=== PATIENT | male | born 1950 | race Caucasian/White ===

== ENCOUNTER 2020-03-02 19:33 | Emergency (ER) | payer OTHER, MEDICARE, SELFPAY ==
[2020-03-02 19:37] VITALS: BP 174/67; PULSE 56; RESP 16; TEMP 36.3; O2SAT 98; BMI 25.8
--- NOTE | 2020-03-02 19:41 | W.ED.ABDPA2 ---
HPI - Abdominal Pain General: Chief Complaint: Abdominal Pain Stated Complaint: numbness/loss of feeling in right leg Time Seen by Provider: 03/02/20 19:36 Source: patient Mode of arrival: ambulatory Limitations: no limitations History of Present Illness: HPI narrative: 69-year-old male states he started having right lower quadrant pain roughly 2 hours ago. He started having some numbness loss of feeling in his right leg 2. He states he stepped on a walnut size and felt like his leg was asleep. He states that since getting out of the car and take his while out the numbness in his leg is subsiding but he still is having right lower quadrant pain that he states radiates to his groin. He denies any difficulty walking he has no problems voiding. Associated Symptoms: Denies chills, dysuria and fever(s) Review of Systems Const: Denies: fever(s), chills, body aches or change in appetite Eyes: Denies: blurry vision or eye discomfort ENMT: Denies: throat pain or dental pain Card: Denies: chest pain Resp: Denies: dyspnea GI: Reports: abdominal pain : Denies: dysuria Musc: Denies: neck pain or back pain Skin/Breast: Denies: rash Neuro: Denies: headache(s) Psych: Denies: depression Robby/Lymph: Denies: easy bruising All/Imm: Denies: urticaria Physical Exam Const: COMMON NORMALS: no acute distress, patient oriented x3 and healthy appearing HENMT: COMMON NORMALS: normocephalic and atraumatic HEAD & SCALP: normocephalic and atraumatic Eye: COMMON NORMALS: Equal, round and reactive pupils present and EOMs intact bilaterally PUPIL: Yes Equal, round and reactive pupils present Neck/C-Spine: COMMON NORMALS: full ROM and supple Chest: COMMONS NORMALS: normal inspection of the chest and normal palpation of entire chest wall Resp: COMMON NORMALS: normal respiratory effort, No retractions, No use of accessory muscles and clear to auscultation bilaterally AUSCULTATION: clear to auscultation bilaterally Cardio: COMMON NORMALS: regular rate, regular rhythm and No murmurs present (Cardio) RATE: regular rate RHYTHM: regular rhythm GI: COMMON NORMALS: Normal to inspection, nondistended, normoactive bowel sounds present, Soft to palpation and no masses PALPATION: Yes Soft to palpation and Yes Tenderness to palpation present (GI) Details: RLQ Extremity: COMMON NORMALS: normal to inspection and full ROM Neuro: COMMON NORMALS: patient oriented x3, moves all extremities and no focal motor deficits Psych: COMMON NORMALS: mental status grossly normal, Normal thought process present and cooperative THOUGHT PROCESS: Normal thought process present Skin: COMMON NORMALS: no rashes or lesions noted and no wounds GENERAL SKIN EXAM: no rashes or lesions noted Course Vital Signs: Vital signs: Vital Signs Temperature 97.4 F L 03/02/20 19:37 Pulse Rate 46 L 03/02/20 23:54 Respiratory Rate 18 03/02/20 23:54 Blood Pressure 135/49 03/02/20 23:54 Pulse Oximetry 97 03/02/20 23:54 MDM - Abdominal Pain MDM Narrative: Medical decision making narrative: 2299 patient's ultrasound here did show monophasic flow in his femoral arteries with unable to find dorsalis pedis or posterior tib flow on ultrasound. I spoke to vascular surgeon at [facility] I already started patient on heparin drip. This is likely acute on chronic. He requested a rapid Covid result before transfer but did accept pending the Covid test at this time. 2354 patient's Covid test came back negative. Will transfer by air. Patient still has heparin drip going is well-appearing here. Lab Data: Labs: Lab Results 03/02/20 03/02/20 03/02/20 Range/Units 19:52 20:02 20:02 WBC 11.3 H (4.0-10.0) 10^3/ uL RBC 4.88 (4.1-5.3) 10^6/u L Hgb 15.1 (11.7-16.6) g/dL Hct 43.8 (42.0-52.0) % MCV 89.8 (80-94) fL MCH 30.9 (28.0-34.0) pg MCHC 34.5 (30.0-36.0) g/dL RDW 12.5 (12.1-15.1) % Plt Count 193 (130-400) 10^3/c mm MPV 8.9 (7.4-10.4) fL Neut % (Auto) 65.6 % Lymph % (Auto) 25.0 % Mcdonald % (Auto) 6.0 % Eos % (Auto) 2.5 % Baso % (Auto) 0.5 % Neut # (Auto) 7.45 (1.8-7.7) 10^3/u L Lymph # (Auto) 2.8 (0.8-4.8) 10^3/u L Mcdonald # (Auto) 0.7 (0.2-0.9) 10^3/u L Eos # (Auto) 0.3 (0.0-0.8) 10^3/u L Baso # (Auto) 0.1 (0.0-0.1) 10^3/u L Nucleated RBC % (a uto) 0 % Nucleated RBCs # 0.0 /100WBC Sodium 136 (136-145) mmol/L Potassium 4.4 (3.5-5.1) mmol/L Chloride 100 (98-107) mmol/L Carbon Dioxide 24 (22-29) mmol/L Anion Gap 16.4 (5-19) BUN 23 (8-23) mg/dL Creatinine 1.7 H (0.7-1.2) mg/dL GFR Calculation 40.0 L (90-130) mL/min Glucose 106 (65-115) mg/dL Calculated Osmolal ity 286 (285-295) mOsm/k g Calcium 9.6 (8.5-10.5) mg/dL Total Bilirubin 0.6 (0.15-1.2) mg/dL AST 18 (0-40) U/L ALT 13 (0-41) U/L Alkaline Phosphata se 60 (40-130) IU/L Total Protein 7.2 (6.6-8.7) g/dL Albumin 4.5 (3.5-5.2) g/dL Globulin 2.7 (1.3-4.6) g/dL Lipase 37 (13-60) U/L Urine Color Yellow (Yellow) Urine Appearance Clear (CLEAR) Urine pH 6.5 (5-7) Ur Specific Gravit y 1.010 (1.005-1.030) Urine Protein Trace (Negative) Urine Glucose (UA) Norm (Normal) Urine Ketones Negative (Negative) Urine Blood Neg (Negative) Urine Nitrate Negative (Negative) Urine Bilirubin Neg (Negative) Urine Urobilinogen 8 H (Negative) mg/dL Ur Leukocyte Ellen ase Negative (Negative) Urine RBC 0-4 H (0-2) /hpf Urine WBC 0-4 H (0-5) /hpf Ur Squamous Epith Cells 0-4 H (0-5) /hpf Amorphous Sediment Not Reportable Urine Bacteria 1+ H (NONE) /hpf SARS-CoV-2 Ag (Rap id) (Negative) 03/02/20 Range/Units 23:20 WBC (4.0-10.0) 10^3/ uL RBC (4.1-5.3) 10^6/u L Hgb (11.7-16.6) g/dL Hct (42.0-52.0) % MCV (80-94) fL MCH (28.0-34.0) pg MCHC (30.0-36.0) g/dL RDW (12.1-15.1) % Plt Count (130-400) 10^3/c mm MPV (7.4-10.4) fL Neut % (Auto) % Lymph % (Auto) % Mcdonald % (Auto) % Eos % (Auto) % Baso % (Auto) % Neut # (Auto) (1.8-7.7) 10^3/u L Lymph # (Auto) (0.8-4.8) 10^3/u L Mcdonald # (Auto) (0.2-0.9) 10^3/u L Eos # (Auto) (0.0-0.8) 10^3/u L Baso # (Auto) (0.0-0.1) 10^3/u L Nucleated RBC % (a uto) % Nucleated RBCs # /100WBC Sodium (136-145) mmol/L Potassium (3.5-5.1) mmol/L Chloride (98-107) mmol/L Carbon Dioxide (22-29) mmol/L Anion Gap (5-19) BUN (8-23) mg/dL Creatinine (0.7-1.2) mg/dL GFR Calculation (90-130) mL/min Glucose (65-115) mg/dL Calculated Osmolal ity (285-295) mOsm/k g Calcium (8.5-10.5) mg/dL Total Bilirubin (0.15-1.2) mg/dL AST (0-40) U/L ALT (0-41) U/L Alkaline Phosphata se (40-130) IU/L Total Protein (6.6-8.7) g/dL Albumin (3.5-5.2) g/dL Globulin (1.3-4.6) g/dL Lipase (13-60) U/L Urine Color (Yellow) Urine Appearance (CLEAR) Urine pH (5-7) Ur Specific Gravit y (1.005-1.030) Urine Protein (Negative) Urine Glucose (UA) (Normal) Urine Ketones (Negative) Urine Blood (Negative) Urine Nitrate (Negative) Urine Bilirubin (Negative) Urine Urobilinogen (Negative) mg/dL Ur Leukocyte Ellen ase (Negative) Urine RBC (0-2) /hpf Urine WBC (0-5) /hpf Ur Squamous Epith Cells (0-5) /hpf Amorphous Sediment Urine Bacteria (NONE) /hpf SARS-CoV-2 Ag (Rap id) Negative (Negative) Imaging Data ^: CT Abd/Pel: Attestation: I personally reviewed and interpreted this imaging study as follows: Radiologist's impression: [address] [address] [address] Scan Report Signed Patient: Stephen Galvan Unit #: [id number] : 1950 Age/Sex: 69 / M ADM Date: 03/02/20 Loc: ER Room/Bed: Attending Dr: Ordering Provider/Ordering MD: Carline Whittington MD Date of Service: 03/02/20 Procedure(s): CT abdomen pelvis w con* [id number] Accession Number(s): [id number] Report Number: [id number] PROCEDURE INFORMATION: Exam: CT Abdomen And Pelvis With Contrast Exam date and time: 03/02/2020 9:29 PM Age: 69 years old Clinical indication: Abdominal pain; Localized; Right lower quadrant (rlq); Patient HX: C/O rlq/groin pain; Additional info: Abd pain TECHNIQUE: Imaging protocol: Computed tomography of the abdomen and pelvis with intravenous contrast. Radiation optimization: All CT scans at this facility use at least one of these dose optimization techniques: automated exposure control; mA and/or kV adjustment per patient size (includes targeted exams where dose is matched to clinical indication); or iterative reconstruction. Contrast material: OMNI 300; Contrast volume: 95 ml; Contrast route: INTRAVENOUS (IV); COMPARISON: No relevant prior studies available. RADIATION DOSE METRICS: Total DLP (mGy-cm): 588.95 FINDINGS: Liver: There is a cystic lesion in the left hepatic lobe with benign features measuring 13 mm. Follow-up is not necessary. Gallbladder and bile ducts: Normal. No calcified stones. No ductal dilation. Pancreas: Normal. No ductal dilation. Spleen: Normal. No splenomegaly. Adrenal glands: Normal. No mass. Kidneys and ureters: Right renal scarring. There are cysts with benign features in the bilateral kidneys the larger of which measures 3.6 cm in the left kidney. Follow-up is not necessary. Stomach and bowel: There is diverticulosis of the colon without evidence of diverticulitis. Appendix: No evidence of appendicitis. Intraperitoneal space: Unremarkable. No free air. No significant fluid collection. Vasculature: Multi-vessel atherosclerotic disease. No definite flow is seen in the distal 1.2 cm of the lower abdominal aorta and proximal aspects of the bilateral common iliac arteries. There is some flow seen within the distal aspects of the common iliac arteries and flow in the bilateral external iliac arteries. Lymph nodes: Unremarkable. No enlarged lymph nodes. Urinary bladder: Unremarkable as visualized. Reproductive: There are calcifications in the prostate gland. 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 Soft tissues: Small fat containing left inguinal hernia. CT/CT abdomen pelvis w con* [id number] IMPRESSION: There is multivessel atherosclerotic disease with no definite flow seen in the distal abdominal aorta and proximal aspects of the bilateral common iliac arteries consistent with Leriche syndrome. Please correlate clinically. Radiation Dose CTDIVOL = (mGy): Critical Care Time Critical Care Time: Critical Care Time: Yes Total Critical Care Time: 36 Attestation: This case had a high probability of a clinically significant, sudden, or life threatening deterioration of this patient's condition which required my full and direct attention, intervention and personal management. Discharge Plan Discharge Patient Disposition: Xfer Other Clinical Impression: Peripheral vascular disease, Ischemic leg Condition: Stable Coding Level of Care Code ED Sales Support Manager for g Fwd Exam Comprehensive
[2020-03-02 20:08] VITALS: BP 165/62; O2SAT 97
[2020-03-02 20:08] LABS: Basophils # 0.1 10^3/uL (0.0-0.1); Basophils % 0.5 %; Eosinophils # 0.3 10^3/uL (0.0-0.8); Eosinophils % 2.5 %; Hematocrit 43.8 % (42.0-52.0); Hemoglobin 15.1 g/dL (11.7-16.6); Lymphocytes # 2.8 10^3/uL (0.8-4.8); Mean Corpuscular HGB Conc 34.5 g/dL (30.0-36.0); Mean Corpuscular Hemoglobin 30.9 pg (28.0-34.0); Mean Corpuscular Volume 89.8 fL (80-94); Mean Platelet Volume 8.9 fL (7.4-10.4); Monocytes # 0.7 10^3/uL (0.2-0.9); Neutrophils # 7.45 10^3/uL (1.8-7.7); Neutrophils % 65.6 %; Nucleated Red Blood Cells % 0 %; Platelet Count 193 10^3/cmm (130-400); Red Blood Count 4.88 10^6/uL (4.1-5.3); Red Cell Distribution Width 12.5 % (12.1-15.1); White Blood Count 11.3 10^3/uL (4.0-10.0)
[2020-03-02 20:25] LABS: Alanine Aminotransferase 13 U/L (0-41); Albumin Level 4.5 g/dL (3.5-5.2); Alkaline Phosphatase 60 IU/L (40-130); Blood Urea Nitrogen 23 mg/dL (8-23); Calcium 9.6 mg/dL (8.5-10.5); Carbon Dioxide 24 mmol/L (22-29); Chloride 100 mmol/L (98-107); Globulin 2.7 g/dL (1.3-4.6); Glucose 106 mg/dL (65-115); Lipase 37 U/L (13-60); Osmolality Calculated 286 mOsm/kg (285-295); Sodium 136 mmol/L (136-145); Total Bilirubin 0.6 mg/dL (0.15-1.2); Total Protein 7.2 g/dL (6.6-8.7)
[2020-03-02 20:28] LABS: Anion Gap 16.4 (5-19); Aspartate Amino Transferase 18 U/L (0-40); Potassium 4.4 mmol/L (3.5-5.1)
[2020-03-02] MEDS: sodium chloride 0.9% 1,000 ML 999 ML IV (20:43)
[2020-03-02 20:45] VITALS: BP 149/59; PULSE 51; RESP 17; O2SAT 97
[2020-03-02 20:46] LABS: Add Urine Microscopic? YES; Bilirubin Urine Neg (Negative); Blood Urine Neg (Negative); Glucose Urine UA Norm (Normal); Ketones Urine Negative (Negative); Leukocyte Esterase Urine Negative (Negative); Nitrate Urine Negative (Negative); Protein Urine Trace (Negative); Urine Appearance Clear (CLEAR); Urine Color Yellow (Yellow); Urobilinogen Urine 8 mg/dL (Negative); pH Urine 6.5 (5-7)
[2020-03-02 20:47] LABS: Add Urine Culture? No; Bacteria Urine 1+ /hpf; RBC Urine 0-4 /hpf (0-2); Squamous Epithelial Cell Urine 0-4 /hpf (0-5); WBC Urine 0-4 /hpf (0-5)
[2020-03-02] MEDS: iodixanol 320 mg/mL 100mL Btl IV (21:36)
[2020-03-02 21:58] VITALS: BP 148/62; PULSE 62; RESP 18; O2SAT 96
--- NOTE | 2020-03-02 22:35 | USR_ITS ---
PROCEDURE INFORMATION: Exam: US Duplex Lower Extremity Arteries Or Arterial Bypass Grafts Exam date and time: 03/02/2020 10:45 PM Age: 69 years old Clinical indication: Other: RT leg numbness; Prior surgery; Surgery type: Vein harvest RT leg; Additional info: Ischemia TECHNIQUE: Imaging protocol: Real-time ultrasound scan of the arteries of the bilateral lower extremities with 2-D diaz scale, color Doppler flow and spectral waveform analysis. Images documented and saved. COMPARISON: No relevant prior studies available. FINDINGS: Right common femoral artery: Peak systolic velocities 66.5 centimeters/seconds it. Monophasic waveforms. Right superficial femoral artery: Lyle systolic velocities are between 15 and 38.7 cm/s. Monophasic waveforms. Right popliteal artery: Peak systolic velocity is 14.5 cm/s. Monophasic waveforms. Right calf/foot arteries: Unable to obtain waveforms. Left common femoral artery: Peak systolic velocity is 24.7 cm/s. Monophasic waveforms. Left superficial femoral artery: Peak systolic velocity is between 18.3 and 33.9 cm/s. Monophasic waveforms. Left popliteal artery: Peak systolic velocity is 15.4 cm/s. Monophasic waveforms. Left calf/foot arteries: Peak systolic velocity of the posterior tibialis artery distally is 11.1 cm/s. Monophasic waveforms. Left calf/foot arteries: No occlusion or significant stenosis in the visualized arteries. Normal waveforms. Dorsalis pedis artery is [place]. US/[place] [id number] IMPRESSION: Monophasic waveforms are nonspecific and may be related to small vessel disease.
[2020-03-02] MEDS: heparin 5,000 unit/mL INJ 1 mL 4000 UNIT IVP (23:01)
[2020-03-02] MEDS: heparin drip 25,000 UNIT/500 ML PREMIX 19.6 UNIT IV (23:02)
[2020-03-02 23:54] VITALS: BP 135/49; PULSE 46; RESP 18; O2SAT 97
[2020-03-02 23:56] LABS: SARS Covid-2 Antigen Negative (Negative)
--- NOTE | 2020-03-03 00:22 | PC.NURSE ---
Consent to transfer signed by patient
--- NOTE | 2020-03-03 00:37 | PC.NURSE ---
Report called to Tien Dailey RN at [facility]
--- NOTE | 2020-03-03 00:53 | PC.NURSE ---
Bedside report given to [employer] crew at 0050
[2020-03-03 01:04] VITALS: BP 145/51; PULSE 48; O2SAT 96
== END 2020-03-03 01:04 | disposition other institution (70) ==
PROVIDERS: Emergency Provider Emergency Medicine
DX: I73.9 Peripheral vascular disease, unspecified (principal); I99.8 Other disorder of circulatory system
CPT/HCPCS: 12345; 74177; 80053; 81001; 83690; 85025; 87426; 93925; 96365; 96366; 96375; 99283; 99285; J1644; J7030; Q9967

== ENCOUNTER → 2020-04-30 13:53 | Outpatient (BNVA) | payer OTHER, SELFPAY | PROVIDERS: Referring Provider Family Medicine; Visit Provider Specialist | DX: G25.81 Restless legs syndrome (principal); Z87.891 Personal history of nicotine dependence | CPT/HCPCS: 99204 ==

== ENCOUNTER 2020-05-01 13:00 | Outpatient (CLI) | payer OTHER, MEDICARE, SELFPAY ==
[2020-05-01 14:58] LABS: Ferritin 106 ng/mL (30-400); Iron 78 ug/dL (59-158); Percent Saturation 33.1 % (20-50); Total Iron Binding Capacity 235 mcg/dl; Unsaturated Iron Binding 157 ug/dL (112-347)
[2020-05-01 15:14] LABS: Vitamin B12 308 pg/mL (232-1245)
== END 2020-05-01 13:01 | disposition home or self-care (01) ==
LOC: LAB 13:08
PROVIDERS: PCP Family Medicine; Visit Provider Specialist
DX: D64.9 Anemia, unspecified (principal); R20.8 Other disturbances of skin sensation
CPT/HCPCS: 82607; 82728; 83540; 83550

== ENCOUNTER → 2020-09-11 13:47 | Outpatient (BNVA) | payer MEDICARE, SELFPAY | PROVIDERS: PCP Family Medicine; Visit Provider Specialist | DX: G25.81 Restless legs syndrome (principal); Z87.891 Personal history of nicotine dependence | CPT/HCPCS: 99212 ==

== ENCOUNTER 2021-03-04 10:56 | Emergency (ER) | payer OTHER, MEDICARE, SELFPAY ==
[2021-03-04 11:12] VITALS: BP 141/73; PULSE 86; RESP 18; TEMP 36.7; O2SAT 100
--- NOTE | 2021-03-04 12:18 | W.ED.EXTPRO ---
HPI - Extremity Problem General: Chief complaint: Extremity Injury, Lower Stated complaint: severe pain in right leg Time Seen by Provider: 03/04/21 12:03 Source: patient Mode of arrival: ambulatory Limitations: no limitations History of Present Illness: HPI Narrative: Patient is a 70-year-old male who presents to ED today with what he believes is right-sided sciatica pain. He is having pain near his right buttock with radiation down into his entire right lower extremity. Patient states he has had pain for several weeks. Patient does have a history of peripheral vascular disease and was seen here last year due to an ischemic extremity. He states he has iliac/femoral artery stents and several stents to leg. He states he was just seen by his vascular surgeon at [facility] in [place] yesterday and had arterial ultrasounds performed which were reportedly normal (ammunition specialist currently trying to get these reports). He has not had any injury or trauma to his leg. He has not noticed any redness, swelling, pallor, coldness. He does report some altered sensation to the anterior below the knee portion of his leg. MD Complaint: extremity pain Onset (ago): week(s) Pain Consistency: constant Location: right and lower extremity Relieving factors: nothing Exacerbating factors: weight bearing and walking Associated symptoms: Reports no associated symptoms; Deny chest pain, fever(s) or rash Review of Systems Const: Denies: fever(s), chills, body aches, fatigue or malaise Card: Denies: chest pain, swelling of feet/ankles or dyspnea on exertion Resp: Denies: dyspnea Musc: Reports: extremity pain; Denies: neck pain, back pain, extremity swelling, joint pain, joint swelling, joint redness, joint warmth, joint stiffness, limited range of motion, muscle weakness or decrease in muscle mass Skin/Breast: Denies: rash, skin pain, new lesions or changes in skin color Neuro: Reports: sensory changes (R LE) and difficulty walking (secondary to pain) [facility] ED PFSH: Family History Brother CAD (coronary artery disease) Grandfather CAD (coronary artery disease) Social History (Updated 09/11/20 @ 14:27 by Daniella Chandler LPN) Smoking and tobacco status: former smoker Quit status (tobacco): has quit using tobacco Year quit tobacco: 2019 Second hand smoke exposure: No Smoking risk assessment/counseling performed?: Yes Alcohol intake: never History of recent travel: No Physical Exam Const: COMMON NORMALS: no acute distress, average body habitus, no limitations, healthy appearing, alert and well nourished GENERAL APPEARANCE: cooperative Resp: COMMON NORMALS: normal respiratory effort and clear to auscultation bilaterally AUSCULTATION: clear to auscultation bilaterally Cardio: COMMON NORMALS: regular rate and regular rhythm RATE: regular rate RHYTHM: regular rhythm Back/Pelvis: COMMON NORMALS: thoracic and lumbar spine normal to inspection, no thoracic nor lumbar tenderness and thoraco-lumbar ROM normal THORACIC SPINE/UPPER BACK: Yes normal to inspection, Yes thoracic ROM normal, No thoracic spinal tenderness, No paraspinal muscle tenderness and No paraspinal muscle spasm LUMBAR SPINE/LOWER BACK: Yes normal to inspection, Yes lumbar ROM normal, No lumbar spinal tenderness, No paraspinal muscle tenderness and No paraspinal muscle spasm PELVIS: Yes buttock abnormal and Yes sciatic notch tenderness on the right Extremity: COMMON NORMALS: normal to inspection, full ROM, capillary refill normal, no joint enlargement, no clubbing, cyanosis or edema, no calf tenderness and no pedal edema GENERAL: Yes normal exam except as noted Neuro: COMMON NORMALS: moves all extremities, no focal motor deficits and no sensory deficits noted SENSORIUM/ORIENTATION: Yes alert Skin: COMMON NORMALS: no rashes or lesions noted GENERAL SKIN EXAM: no rashes or lesions noted TRAUMA: no lacerations or abrasions Course Vital Signs: Vital signs: Vital Signs Temperature 98.0 F 03/04/21 11:12 Pulse Rate 86 03/04/21 11:12 Respiratory Rate 18 03/04/21 12:32 Blood Pressure 141/73 03/04/21 11:12 Pulse Oximetry 98 03/04/21 12:32 MDM - Extremity (Nontraumatic) MDM Narrative: Medical decision making narrative: Patient with palpable pulses to Cem LUIS from [facility] unattainable as we tried for over two hours to get these reports. Fortunately patient did have access to his online records and I did review his visit with the vascular surgery office. According to his documentation his iliac stent was patent. He had occlusion of his SFA stent but there was reconstitution distally. His popliteal artery was patent. PT/DP pulses present. At their visit yesterday they did not recommend anything further from a vascular surgery standpoint. Patient will be treated for R sided sciatica and [facility] that could include MRI of back, PT, pain management referral, etc. Patient is stable for DC from and ED standpoint as he has no evidence of acute limb ischemia, DVT, cord compression, or other emergent condition. Imaging Data^: XR R hip/pelvis: Radiologist's impression: [address] [address]NTtd ReportSigned Patient: Stephen Galvan LUnit #: [id number]: [id number]#:[id number]/Sex: 70 / MADM Date: 03/04/21Loc: ERRoom/Bed:Attending Dr: Ordering Provider/Ordering MD: Maegan Burgess Date of Service: 03/04/21 Procedure(s): XR hip RT 2-3V wo/w pel* [id number] Accession Number(s): [id number] Report Number: [id number] PROCEDURE INFORMATION: Exam: XR Right Hip Exam date and time: 03/04/2021 12:17 PM Age: 70 years old Clinical indication: Hip pain; Right hip; Patient HX: No injury pain to RT hip x 6 weeks; Additional info: Pain/one view pelvis too please TECHNIQUE: Imaging protocol: XR Right hip. Views: 1 view hip with pelvis when performed. COMPARISON: CT abdomen pelvis w con* [id number] 03/02/2020 9:27 PM FINDINGS: Bones/joints: No fracture, dislocation or other acute bony abnormalities are seen. There are no significant degenerative changes in the hips. Soft tissues: See Vasculature finding. Vasculature: Bilateral iliac artery and right femoral artery stents are present. There are clips in both inguinal regions. XR/XR hip RT 2-3V wo/w pel* [id number] IMPRESSION: No significant abnormalities are seen in the right hip. Radiation Dose CTDIVOL = (mGy): DLP = (mGy-cm) Dictated By:Guicho Garcia By:Guicho Garcia Date/Time:03/04/21 1326DD/ 1217 Discharge Plan Discharge Patient Disposition: Home Clinical Impression: Right sided sciatica Condition: Stable Prescriptions: New cyclobenzaprine 10 mg tablet 10 mg PO TID Qty: 14 RF: 0 tramadol 50 mg tablet 50 mg PO Q6H PRN (Reason: pain) Qty: 14 RF: 0 Medrol (Henrry) 4 mg tablets,dose pack See Rx Instructions .ROUTE .COMPLEX Qty: 21 RF: 0 No Action losartan 100 mg tablet 100 mg PO DAILY RF: 0 atenolol-chlorthalidone 50-25 mg tablet 1 tab PO DAILY RF: 0 pantoprazole 40 mg tablet,delayed release (DR/EC) 40 mg PO DAILY RF: 0 clopidogrel 75 mg tablet 75 mg PO DAILY RF: 0 ropinirole 3 mg tablet 3 mg PO DAILY RF: 0 diltiazem HCl 120 mg capsule,extended release 12 hr 120 mg PO DAILY RF: 0 atorvastatin 40 mg tablet 40 mg PO DAILY RF: 0 citalopram 40 mg tablet 20 mg PO DAILY RF: 0 amlodipine 2.5 mg tablet 2.5 mg PO DAILY RF: 0 cholecalciferol (vitamin D3) 25 mcg (1,000 unit) capsule 25 mcg PO DAILY RF: 0 metformin 500 mg tablet See Rx Instructions PO DAILY RF: 0 aspirin [Roz Chewable Aspirin] 81 mg tablet,chewable 81 mg PO DAILY RF: 0 omega-3 fatty acids [Fish Oil Concentrate] 1,000 mg capsule 1,000 mg PO BID RF: 0 pramipexole 0.125 mg tablet See Rx Instructions .ROUTE .COMPLEX Qty: 150 RF: 4 Discharge Orders: Discharge ED (Routine); Ordered 03/04/21 Ordered By: Maegan Burgess Referrals: Yue Tomas MD [Primary Care Provider] - Patient Instructions: Sciatica (ED) Activity Restrictions/Additional Instructions: As we discussed please [facility] with the [facility] for further [facility] of your sciatic nerve pain. We will try a trial of steroids, muscle relaxers, pain medications to see if this gives you any relief. Coding Level of Care Code ED Insurance Account Executive for Ahsan Fwgary Exam Detailed
[2021-03-04 12:32] VITALS: RESP 18; O2SAT 98
[2021-03-04] MEDS: morphine 4 mg/mL SDV 1 mL IM (12:32)
[2021-03-04] MEDS: orphenadrine 30 mg/mL Inj 2 mL 60 MG IM (12:33)
[2021-03-04] MEDS: dexamethasone 10 mg/mL INJ 8 MG IM (12:33)
[2021-03-04 15:10] VITALS: BP 117/65; PULSE 76; RESP 16; TEMP 36.5; O2SAT 99
== END 2021-03-04 15:12 | disposition home or self-care (01) ==
PROVIDERS: Emergency Provider Physician Assistant; PCP Family Medicine
DX: M54.31 Sciatica, right side (principal); Z79.84 Long term (current) use of oral hypoglycemic drugs; Z79.02 Long term (current) use of antithrombotics/antiplatelets; Z79.82 Long term (current) use of aspirin; Z87.891 Personal history of nicotine dependence
CPT/HCPCS: 73502; 96372; 99283; J1100; J2270; J2360

== ENCOUNTER 2021-06-10 14:44 | Outpatient (CLI) | payer OTHER, MEDICARE, SELFPAY ==
--- NOTE | 2021-06-10 14:51 | MR_ITS ---
WS: [id number] MRI LUMBAR SPINE NONCONTRAST TECHNIQUE: Sagittal T1, T2 and STIR imaging. Axial T1 and T2 imaging. CLINICAL INFORMATION: R SCIATICA COMPARISON: None. FINDINGS: Normal lumbar alignment. No acute compression. No high-grade central canal stenosis. Mild disc bulgin g L4-L5 and L5-S1. Chronic spondylolysis L5-S1. No significant anterolisthesis. L1-L2: Normal. L2-L3: Mild annular bulging. Mild facet arthropathy. Spinal canal and foramen are patent. L3-L4: Mild annular bulging. Mild facet arthropathy. Spinal canal and foramen are patent. L4-L5: Mild annular bulging with slight impingement on traversing LEFT greater than RIGHT L5 nerve ro ots. Mild facet arthropathy. Mild RIGHT greater than LEFT foraminal narrowing. L5-S1: Mild disc bulging with slight effacement of ventral thecal sac. Mild facet arthropathy. Mild R IGHT and no significant LEFT foraminal narrowing. Mild facet arthropathy. Chronic spondylolysis at th is level. Small amount of edema in the RIGHT dorsal paravertebral soft tissues in the lower lumbar spine likely inflammatory. No drainable fluid collections. Bilateral renal cortical atrophy. LEFT renal cyst gordo uring 2.7 x 2.7 CM. Visualized pelvic bony structures: Normal. Paravertebral soft tissues: Normal. MR/MR lumbar spine wo con* [id number] IMPRESSION: 1. Mild lumbar curve. No acute compression. Chronic spondylolysis L5-S1. No si gnificant anterolisthesis. 2. Mild annular bulging L4-L5 with slight impingement on the traversing LEFT g reater than RIGHT L5 nerve roots. Correlation with L5 nerve root symptoms. 3. Bilateral L4-L5 foraminal narrowing with slight impingement on the exiting RIGHT greater than LEFT L4 nerve roots. 4. Mild RIGHT L5-S1 bony foraminal narrowing. 5. Moderate facet arthropathy L4-L5 and L5-S1. 6. LEFT renal cyst measuring 2.7 x 2.7 cm.
== END 2021-06-10 14:45 | disposition home or self-care (01) ==
LOC: RAD 14:46
PROVIDERS: PCP Family Medicine; Visit Provider Family Medicine
DX: M54.31 Sciatica, right side (principal); M47.817 Spondylosis without myelopathy or radiculopathy, lumbosacral region; M51.26 Other intervertebral disc displacement, lumbar region; M47.816 Spondylosis without myelopathy or radiculopathy, lumbar region; N28.1 Cyst of kidney, acquired
CPT/HCPCS: 72148

== ENCOUNTER → 2021-09-10 15:05 | Outpatient (BNVA) | payer OTHER, SELFPAY | PROVIDERS: PCP Family Medicine; Visit Provider Specialist | DX: G62.9 Polyneuropathy, unspecified (principal); G25.81 Restless legs syndrome; I73.9 Peripheral vascular disease, unspecified | CPT/HCPCS: 99213; 99214 ==

== ENCOUNTER → 2022-09-18 08:56 | Outpatient (BNVA) | payer OTHER, SELFPAY | PROVIDERS: PCP Family Medicine; Visit Provider Specialist | DX: G54.1 Lumbosacral plexus disorders (principal); G25.81 Restless legs syndrome; I73.9 Peripheral vascular disease, unspecified; N18.9 Chronic kidney disease, unspecified | CPT/HCPCS: 99213 ==

== ENCOUNTER 2022-10-22 20:00 | Outpatient (CLI) | payer OTHER, SELFPAY | END 2022-10-22 20:01 | disposition home or self-care (01) | LOC: SLEEP 10-23 05:40 | PROVIDERS: PCP Family Medicine; Visit Provider Family Medicine | DX: G47.30 Sleep apnea, unspecified (principal) | CPT/HCPCS: 95811 ==

== ENCOUNTER 2023-01-19 20:00 | Outpatient (CLI) | payer OTHER, SELFPAY | END 2023-01-19 20:01 | disposition home or self-care (01) | LOC: SLEEP 01-20 05:26 | PROVIDERS: PCP Family Medicine; Visit Provider Family Medicine | DX: G47.33 Obstructive sleep apnea (adult) (pediatric) (principal) | CPT/HCPCS: 95811 ==

== ENCOUNTER → 2023-01-21 09:54 | Outpatient (BNVA) | payer OTHER, SELFPAY | PROVIDERS: PCP Family Medicine; Visit Provider Internal Medicine Cardiovascular Disease | DX: I48.91 Unspecified atrial fibrillation (principal); I25.10 Atherosclerotic heart disease of native coronary artery without angina pectoris; I73.9 Peripheral vascular disease, unspecified; I10 Essential (primary) hypertension; E11.9 Type 2 diabetes mellitus without complications; G25.81 Restless legs syndrome; F17.200 Nicotine dependence, unspecified, uncomplicated | CPT/HCPCS: 93005; 93225; 93227; 99204 ==

== ENCOUNTER → 2023-09-15 12:18 | Outpatient (BNVA) | payer OTHER, SELFPAY | PROVIDERS: PCP Family Medicine; Visit Provider Specialist | DX: G54.1 Lumbosacral plexus disorders (principal); G25.81 Restless legs syndrome | CPT/HCPCS: 99213 ==

== ENCOUNTER 2024-01-12 09:21 | Outpatient (CLI) | payer OTHER, SELFPAY ==
--- NOTE | 2024-01-12 09:24 | USCV_ITS ---
Stephen Galvan Age: 73 Gender: M : 1950 Exam Date: 01/12/2024 09:53 Ordering Phys: Yue Tomas MD Technologist: CT [place] [facility] [place]: Bradycardia BP: / HR: 44 Rhythm: Sinus Technical Quality: Adequate MEASUREMENTS (Male / Female) Normal Values 2D ECHO LVOT Diameter 2.0 cm LV Ejection Fraction MOD 4C 50.8 % LV Ejection Fraction MOD 2C 59.1 % LV Ejection Fraction 2C AL 61.6 % LA Diameter 4.7 cm RA Systolic Volume 4C AL 45.9 ml RA Systolic Volume 4C MOD 43.5 ml LA Sys Volume AL 129.6 cm cubed Aorta at Sinotubular Diameter 2.1 cm M-MODE LA Ao Ratio MM 1.5 AV Cusp Separation MM 2.2 cm DOPPLER AV Peak Velocity 147.0 cm/s LVOT Peak Velocity 103.0 cm/s AV Area Cont Eq vti 2.1 cm squared AV Area Cont Eq pk 2.3 cm squared MV Peak Velocity 129.0 cm/s MV Area PHT 3.4 cm squared Mitral E to A Ratio 3.8 TV Peak Velocity 221.7 cm/s TR Peak Velocity 234.0 cm/s TR Peak Gradient 21.9 mmHg TR Mean Velocity 151.0 cm/s TR Mean Gradient 10.4 mmHg TR Velocity Time Integral 85.4 cm TV Peak E Velocity 75.0 cm/s Right Atrial Pressure 3.0 mmHg Pulmonary Artery Systolic Pressu 24.9 mmHg PV Peak Velocity 108.0 cm/s FINDINGS Left Ventricle Mildly increased left ventricular cavity size. Mildly decreased left ventricular systolic function. Global left ventricular hypokinesis. Left ventricular ejection fraction is estimated at 50 %. Grade IV/IV diastolic dysfunction (irreversible restrictive filling pattern), severely elevated filling pressures. Right Ventricle The right ventricle is normal in size and function. Right Atrium The right atrium is normal in size. Left Atrium Moderately increased left atrial size. Mitral Valve Mildly thickened mitral valve. No mitral valve stenosis. Mild to moderate mitral valve regurgitation. Aortic Valve Moderate aortic valve calcification. No aortic valve stenosis. Trace aortic valve regurgitation. Tricuspid Valve Structurally normal tricuspid valve without significant stenosis or regurgitation. Pulmonic Valve Structurally normal pulmonic valve without significant stenosis. There is no pulmonic regurgitation. Pericardium Normal pericardium without effusion. Aorta Normal ascending aorta dimension. IVC The inferior vena cava appears normal. CONCLUSIONS Mildly increased left ventricular cavity size. Mildly decreased left ventricular systolic function. Global left ventricular hypokinesis. Left ventricular ejection fraction is estimated at 50 %. Grade IV/IV diastolic dysfunction (irreversible restrictive filling pattern), severely elevated filling pressures. Moderately increased left atrial size. Mildly thickened mitral valve. No mitral valve stenosis. Mild to moderate mitral valve regurgitation. There is no pericardial effusion. Pulmonary artery systolic pressure is within normal limits. Right atrial pressure is around 10 mm of mercury. Sarah Villa MD (Electronically Signed) Final Date: 12 January 2024 12:53 S
== END 2024-01-12 09:22 | disposition home or self-care (01) ==
LOC: RAD 09:22
PROVIDERS: PCP Family Medicine; Visit Provider Family Medicine
DX: I34.0 Nonrheumatic mitral (valve) insufficiency (principal); R00.1 Bradycardia, unspecified; I70.0 Atherosclerosis of aorta
CPT/HCPCS: 93306

== ENCOUNTER → 2024-01-26 14:15 | Outpatient (BNVA) | payer OTHER, SELFPAY | PROVIDERS: PCP Family Medicine; Visit Provider Internal Medicine Cardiovascular Disease | DX: I73.9 Peripheral vascular disease, unspecified (principal); I25.10 Atherosclerotic heart disease of native coronary artery without angina pectoris; I10 Essential (primary) hypertension; I48.0 Paroxysmal atrial fibrillation; Z79.01 Long term (current) use of anticoagulants; F17.210 Nicotine dependence, cigarettes, uncomplicated | CPT/HCPCS: 99214 ==

== ENCOUNTER 2024-02-15 06:53 | Outpatient (CLI) | payer OTHER, SELFPAY ==
--- NOTE | 2024-02-15 07:15 | USCV_ITS ---
Stephen Galvan Age: 73 Gender: M : 1950 Exam Date: 02/15/2024 07:03 Ordering Phys: Ottoniel Ahmadi MD ([email or web address]) Technologist: CHELSEY [place] [facility] [place] pad Risk Factors: Previous Vascular Surgery: RIGHT LEFT BP: 153.0 / 55.00 BP: 120.0/ 94.00 0 0 Waveform Velocity (cm/s) Velocity (cm/s) Waveform Biphasic 129.4 Iliac Prox 141.7 Biphasic Triphasic 109.0 Iliac Mid 113.1 Biphasic Biphasic 108.0 Iliac Distal 121.4 Biphasic Biphasic 114.0 [employer] 126.0 Biphasic Biphasic 104.0 SFA Prox 119.0 Biphasic Biphasic 65.0 SFA Mid 232.0 Biphasic Biphasic 60.0 SFA Dist 94.0 Biphasic Monophasic 89.0 POP 68.0 Biphasic Monophasic 83.0 COMBINE MECH[employer]IC 68.0 Monophasic Monophasic 77.0 DPA 44.0 Monophasic 0.9 FIONA 0.7 FINDINGS 1. Mild diffuse plaque in the iliac and femoral arteriesy on the arteries on the right side. Moderate plaque at the popliteal artery. 2. Mild diffuse plaque in the iliac and common femoral artery on the left side. Moderate diffuse plaque in the superficial femoral artery. Elevated Doppler velocity at the mid SFA 3. Resting FIONA of 0.9 on the right and 0.7 on the left. CONCLUSIONS 1. Abnormal resting FOINA on the right there is a history of mild peripheral artery disease. Moderate plaques at the popliteal artery. 2. Abnormal resting FIONA of 0.7 on the left suggestive of moderate peripheral artery disease. Elevated velocity of the SFA at the mid SFA is suggestive of greater than 50% stenosis. Consider exercise FIONA, if clinically indicated. No similar previous studies are available for comparison Dr Ottoniel Ahmadi MD [facility] (Electronically Signed) Final Date: 18 February 2024 10:16 S
== END 2024-02-15 06:54 | disposition home or self-care (01) ==
LOC: RAD 06:53
PROVIDERS: PCP Family Medicine; Visit Provider Internal Medicine Cardiovascular Disease
DX: I73.9 Peripheral vascular disease, unspecified (principal)
CPT/HCPCS: 93925

== ENCOUNTER → 2024-09-19 12:08 | Outpatient (BNVA) | payer OTHER, SELFPAY | PROVIDERS: PCP Family Medicine; Visit Provider Specialist | DX: G54.1 Lumbosacral plexus disorders (principal); G25.81 Restless legs syndrome | CPT/HCPCS: 99213 ==

== ENCOUNTER → 2024-10-10 09:37 | Outpatient (BNVA) | payer OTHER, SELFPAY | PROVIDERS: PCP Family Medicine; Visit Provider Nurse Practitioner Family | DX: I25.10 Atherosclerotic heart disease of native coronary artery without angina pectoris (principal); I73.9 Peripheral vascular disease, unspecified; I10 Essential (primary) hypertension; I48.91 Unspecified atrial fibrillation; Z79.02 Long term (current) use of antithrombotics/antiplatelets; F17.210 Nicotine dependence, cigarettes, uncomplicated; Z95.1 Presence of aortocoronary bypass graft | CPT/HCPCS: 36415; 80053; 85025; 99213 ==